=== PATIENT | male | born 1955 | race Caucasian/White ===

== ENCOUNTER 2016-06-01 06:26 | Day surgery (SDC) | payer MEDICAID ==
[2016-06-01] MEDS ORDERED: Sodium Chloride 0.9% 1,000 ML IV SCH (07:00)
[2016-06-01] MEDS ORDERED: fentaNYL 100 MCG/2 ML SDV ONE (07:43)
[2016-06-01] MEDS ORDERED: Midazolam 1 MG/ML 2 ML SDV ONE (07:43)
[2016-06-01] MEDS ORDERED: Propofol 200 MG/20 ML SDV ONE (07:43)
[2016-06-01 09:07] VITALS: BP 142/91
--- NOTE | 2016-06-01 09:53 | OR ---
DATE OF PROCEDURE: 06/01/2016 PROCEDURE: Colonoscopy. FINDINGS: Sigmoid colon polyp, 5 mm, completely removed using cold biopsy forceps. COMPLICATIONS: None. PERSONNEL RECRUITER: None. PREOPERATIVE DIAGNOSIS: Family history of colorectal cancer/history of colon polyps. POSTOPERATIVE DIAGNOSIS: Family history of colorectal cancer/history of colon polyps. INDICATIONS: Risks, benefits, alternatives, and limitations, including, but not limited to infection, bleeding, and perforation were explained to the patient and they wished to proceed. We also discussed false positives and false negatives. PROCEDURE IN DETAIL: The patient was placed in left lateral decubitus position. Digital rectal exam was performed without abnormalities. The scope was introduced and advanced atraumatically to the ileocecal valve. The scope was brought back to the ascending, transverse, descending colon, and retroflexed. During this process, a 5 mm polyp was identified and completely removed. No other abnormalities noted. The patient tolerated the procedure well. Jason Vega MD /[id number]
== END 2016-06-01 09:25 | disposition home or self-care (01) ==
LOC: JP.SDS 06:26
PROVIDERS: ATTEND Surgery
DX: Z12.11 Encounter for screening for malignant neoplasm of colon (principal); D12.5 Benign neoplasm of sigmoid colon
CPT/HCPCS: 45380; 88305; J2250; J2704; J3010; J7040

== ENCOUNTER 2019-10-08 17:50 | Emergency (ER) | payer MEDICAID ==
[2019-10-08 18:04] VITALS: BP 105/80; PULSE 98
--- NOTE | 2019-10-08 18:36 | EDM.PDOC ---
ED HPI GENERAL MEDICAL PROBLEM - General Chief Complaint: Respiratory Problem Stated Complaint: POSSIBLE PNEUMONIA Time Seen by Provider: 10/08/19 18:20 Source of Information: Reports: Patient, Family History Limitations: Reports: No Limitations - History of Present Illness INITIAL COMMENTS - FREE TEXT/NARRATIVE: 64-year-old male arrives with concerns of bronchitis or pneumonia. He has had a worsening cough and intermittent fevers for the past 7 days, now is developed a headache. He does have COPD and continues to smoke. They have been self isolating and have not been exposed to any other people over the past several weeks and are not concerned about COVID. Denies nausea or vomiting. He has been using his albuterol inhaler but it is very old and empty. Onset: Gradual Duration: Day(s): (7 to 10 days) Associated Symptoms: Reports: Cough, Fever/Chills, Malaise, Shortness of Breath, Weakness - Related Data Allergies Allergy/AdvReac Type Severity Reaction Status Date / Time No Known Allergies Allergy Verified 10/08/19 18:09 Home Meds: Home Meds Albuterol Sulfate [Proair Hfa] 2 inh IH Q4H PRN 05/30/16 [History] Aspirin [Adult Low Dose Aspirin EC] 81 mg PO DAILY 05/30/16 [History] Clobetasol [Clobetasol Propionate 0.05%] 15 gm TOP BID 05/30/16 [History] Halobetasol Propionate [Ultravate] 1 applic TP DAILY 05/30/16 [History] Mometasone Furoate [Elocon] 1 applic TOP BID 05/30/16 [History] Cyclobenzaprine [Flexeril] 10 mg PO TID PRN 10/08/19 [History] Past Medical History Cardiovascular History: Reports: Heart Murmur Respiratory History: Reports: COPD Gastrointestinal History: Reports: Colon Polyp, Hiatal Hernia, Pancreatitis Genitourinary History: Reports: Other (See Below) Other Genitourinary History: elevated PSA Musculoskeletal History: Reports: Arthritis, Fracture Other Musculoskeletal History: viral RA Oncologic (Cancer) History: Reports: Basal Cell Carcinoma Dermatologic History: Reports: Psoriasis, Other (See Below) Other Dermatologic History: basal cell ca - Infectious Disease History Infectious Disease History: Reports: Chicken Pox, Mumps - Past Surgical History HEENT Surgical History: Reports: None Respiratory Surgical History: Reports: None GI Surgical History: Reports: Cholecystectomy, Colonoscopy, Hernia, Inguinal, Polypectomy Dermatological Surgical History: Reports: Skin Biopsy Social & Family History - Family History Family Medical History: Noncontributory - Tobacco Use Smoking Status *Q: Current Every Day Smoker Years of Tobacco use: 45 Packs/Tins Daily: 0.5 - Caffeine Use Caffeine Use: Reports: None - Recreational Drug Use Recreational Drug Use: No - Living Situation & Occupation Living situation: Reports: , with Spouse Occupation: Disabled ED ROS GENERAL - Review of Systems Review Of Systems: See Below Constitutional: Reports: Fever, Chills, Malaise HEENT: Reports: Sinus Problem (Sinus pressure and headache). Denies: Throat Pain Respiratory: Reports: Shortness of Breath, Cough, Sputum Cardiovascular: Denies: Chest Pain GI/Abdominal: Denies: Abdominal Pain, Nausea, Vomiting : Reports: No Symptoms Musculoskeletal: Reports: No Symptoms ED EXAM, GENERAL - Physical Exam Exam: See Below Exam Limited By: No Limitations General Appearance: Alert, No Apparent Distress, Other (O2 sats are normal, temperature is 100.3) Head: Atraumatic Respiratory/Chest: No Respiratory Distress, Rhonchi (Perihilar rhonchi and a few scattered expiratory wheezes are present bilaterally, no focal rales or crackles) Cardiovascular: Regular Rate, Rhythm Extremities: No: Pedal Edema Psychiatric: Normal Affect, Normal Mood Skin Exam: Warm, Dry Course - Vital Signs Last Recorded V/S: Last Vital Signs Temp 100.3 F 10/08/19 18:17 Pulse 98 10/08/19 18:17 Resp 20 10/08/19 18:17 BP 105/80 10/08/19 18:17 Pulse Ox 92 L 10/08/19 18:17 - Re-Assessments/Exams Free Text/Narrative Re-Assessment/Exam: 10/08/19 18:35 Patient is going to refuse hospitalization and is willing to try a course of antibiotic and a new albuterol inhaler without chest x-ray. It is the course of treatment he prefers. He will be placed on Zithromax, and provided with a new albuterol inhaler and will return in the next 48 to 72 hours if not improving. Departure - Departure Time of Disposition: 18:54 Disposition: Home, Self-Care 01 Clinical Impression: Bronchitis - Discharge Information Instructions: Acute Bronchitis, Adult, [id number] Referrals: Dima Robles NP [Primary Care Provider] - Forms: ED Department Discharge Care Plan Goals: Take antibiotic for the next 5 days as prescribed, starting tonight. Use albuterol as needed and try to reduce smoking. Return in the next 48 to 72 hours if not improving satisfactorily. Sepsis Event Note (ED) - Evaluation Sepsis Screening Result: No Definite Risk - Focused Exam Vital Signs: Vital Signs Temp Pulse Resp BP Pulse Ox 10/08/19 18:17 100.3 F 98 20 105/80 92 L 10/08/19 18:03 100.3 F 98 20 105/80 92 L
== END 2019-10-08 18:54 | disposition home or self-care (01) ==
LOC: JP.ED 17:50
DX: J40 Bronchitis, not specified as acute or chronic (principal); F17.210 Nicotine dependence, cigarettes, uncomplicated; J44.9 Chronic obstructive pulmonary disease, unspecified; M19.90 Unspecified osteoarthritis, unspecified site; Z79.82 Long term (current) use of aspirin; Z79.899 Other long term (current) drug therapy
CPT/HCPCS: 99283